=== PATIENT | female | born 1985 | race Caucasian/White ===

== ENCOUNTER 2018-04-12 04:28 | Inpatient (IN) | payer MEDICAID ==
[~2018-04-12] VITALS: Ht 167.6 cm; Wt 111.6 kg
[~2018-04-12 04:28] MED LIST: PNV1TABL50 PO
[2018-04-12] MEDS ORDERED: LIDOCAINE HCL 1% 20ML VIAL (Pyxis) INJ INFIL SCH (05:30)
[2018-04-12] MEDS ORDERED: BUTORPHANOL TARTRATE 2 MG/ML VIAL IV PRN (05:30)
[2018-04-12] MEDS ORDERED: MISOPROSTOL 100MCG TABLET VG SCH (05:30)
[2018-04-12] MEDS ORDERED: METHYLERGONOVINE MALEATE 0.2 MG/ML IM PRN (05:30)
[2018-04-12] MEDS ORDERED: NALOXONE HCL 0.4 MG/ML 1ML VIAL IM PRN (05:30)
[2018-04-12] MEDS ORDERED: CARBOPROST TROMETHAMINE 250 MCG/ML AMPUL IM PRN (05:30)
[2018-04-12] MEDS: LACTATED RINGERS 1,000 ML IV SCH ×2 (05:55→11:02)
[2018-04-12 06:20] LABS: BASOPHILS % 0.6 % (0.0-2.0); EOSINOPHILS % 0.9 % (0.0-5.0); HEMOGLOBIN. 11.7 g/dL (12.0-16.0); LYMPHOCYTES % 29.9 % (20.0-50.0); MEAN CORPUSCULAR HEMOGLOBIN 28.8 pg (28.0-32.0); MEAN CORPUSCULAR VOLUME 86.3 fL (81.0-99.0); MEAN PLATELET VOLUME 7.4 fl (7.4-10.4); MONOCYTES % 7.5 % (2.0-8.0); NEUTROPHILS % 61.1 % (40.0-76.0); PLATELET 314 x1000/uL (130-400); RED BLOOD CELL COUNT 4.05 mill/uL (4.2-5.4); RED CELL DISTRIBUTION WIDTH 15.1 % (11.6-14.6)
[2018-04-12 06:23] LABS: CLARITY URINE TURBID (CLEAR); COLOR URINE YELLOW (YELLOW); KETONES URINE NEGATIVE (NEGATIVE); LEUKOCYTE ESTERASE URINE NEGATIVE (NEGATIVE); NITRITE URINE NEGATIVE (NEGATIVE); OCCULT BLOOD URINE 3+ (NEGATIVE); PROTEIN URINE 2+ (NEGATIVE); SPECIFIC GRAVITY URINE 1.012 (1.005-1.030); UROBILINOGEN URINE 0.2 E.U./dL (0.2-1.0)
[2018-04-12 06:30] LABS: INR 0.9; PARTIAL THROMBOPLASTIN TIME 26.2 sec (23.4-31.0); PROTHROMBIN TIME 9.3 sec (9.1-11.1)
[2018-04-12 06:45] LABS: *AMPHETAMINES SCREEN URINE NEGATIVE (NEGATIVE); *BARBITURATES SCREEN URINE NEGATIVE (NEGATIVE); *BENZODIAZEPINES SCREEN URINE NEGATIVE (NEGATIVE); *COCAINE SCREEN URINE NEGATIVE (NEGATIVE)
[2018-04-12 06:46] LABS: CANNABINOID URINE SCREEN NEGATIVE (NEGATIVE); METHADONE URINE SCREEN NEGATIVE (NEGATIVE); OPIATES URINE SCREEN NEGATIVE (NEGATIVE); PHENCYCLIDINE URINE SCREEN NEGATIVE (NEGATIVE)
[2018-04-12 07:12] LABS: HEPATITIS B SURFACE ANTIGEN NEGATIVE
[2018-04-12] MEDS ORDERED: BUPIVACAINE HCL/NS/PF EPIDURAL 100 ML EP ONE (10:17)
[2018-04-12] MEDS: DEXT 5%/LR + PITOCIN 20UNITS/L 1,000 ML IV SCH ×2 (16:24→20:25)
[2018-04-12] MEDS ORDERED: FENTANYL CITRATE/PF 50MCG/ML 2ML VIAL ONE (17:29)
[2018-04-12] MEDS ORDERED: MORPHINE SULFATE/PF 1MG/ML 10ML AMP ONE (17:39)
[2018-04-12] MEDS ORDERED: CEFAZOLIN SODIUM 1000MG/VIAL ONE (17:54)
[2018-04-12] MEDS ORDERED: OXYTOCIN 10 UNITS/ML 1ML ONE (17:54)
[2018-04-12] MEDS ORDERED: METOCLOPRAMIDE HCL 10MG/2ML VIAL ONE (17:55)
[2018-04-12] MEDS ORDERED: ONDANSETRON HCL 4MG/2ML INJ ONE (17:55)
[2018-04-12] MEDS ORDERED: DEXT 5%/LR + PITOCIN 20UNITS/L 1,000 ML IV SCH (17:59)
[2018-04-12] MEDS ORDERED: RHO(D) IMMUNE GLOBULIN 300 MCG/SYR IM PRN (18:00)
[2018-04-12] MEDS ORDERED: ONDANSETRON HCL 4MG/2ML INJ IV PRN (18:00)
[2018-04-12] MEDS ORDERED: HEMORRHOIDAL SUPP PR PRN (18:00)
[2018-04-12] MEDS ORDERED: LANOLIN OINT 0.25 GM TUBE TOP PRN (18:00)
[2018-04-12] MEDS ORDERED: BISACODYL 10MG SUPP PR PRN (18:00)
[2018-04-12] MEDS ORDERED: HYDROCODONE/ACETAMINOPHEN 5/325MG TABLET PO PRN (18:00)
[2018-04-12 20:40] VITALS: BP 99/48
[2018-04-12 21:10] VITALS: BP 103/46
[2018-04-12 21:40] VITALS: BP 100/51
[2018-04-13 00:10] VITALS: BP 94/50
[2018-04-13 04:40] VITALS: BP 99/52
[2018-04-13] MEDS ORDERED: DIPHENHYDRAMINE 25MG CAPSULE PO PRN (05:15)
[2018-04-13] MEDS: KETOROLAC 30MG/ML VIAL IV PRN ×2 (05:24→13:16)
[2018-04-13 07:50] LABS: BASOPHILS % 0.1 % (0.0-2.0); EOSINOPHILS % 0.1 % (0.0-5.0); HEMATOCRIT. 27.9 % (36.0-48.0); HEMOGLOBIN. 9.2 g/dL (12.0-16.0); LYMPHOCYTES % 11.7 % (20.0-50.0); MEAN CORPUSCULAR HEMOGLOBIN 28.8 pg (28.0-32.0); MEAN CORPUSCULAR VOLUME 87.3 fL (81.0-99.0); MEAN PLATELET VOLUME 7.1 fl (7.4-10.4); MONOCYTES % 5.3 % (2.0-8.0); NEUTROPHILS % 82.8 % (40.0-76.0); PLATELET 256 x1000/uL (130-400); RED CELL DISTRIBUTION WIDTH 14.7 % (11.6-14.6)
[2018-04-13 09:00] VITALS: BP 90/44
[2018-04-13] MEDS: PRENATAL VIT/FE FUMARATE/FA TABLET PO SCH (09:00)
[2018-04-13] MEDS: MAGNESIUM/ALUMINUM HYDROXIDE/SIMETHICONE 30ML UDC PO SCH ×4 (09:15→21:00)
[2018-04-13] MEDS: METOCLOPRAMIDE HCL 10MG/2ML VIAL IV SCH ×2 (09:15→21:00)
[2018-04-13 17:37] VITALS: BP 107/63
[2018-04-13] MEDS: ACETAMINOPHEN WITH CODEINE 300/30MG TABLET PO PRN (18:04)
[2018-04-13 20:00] VITALS: BP 100/67
[2018-04-14] VITALS: BP 102/52
[2018-04-14 04:00] VITALS: BP 103/61
[2018-04-14] MEDS: ACETAMINOPHEN WITH CODEINE 300/30MG TABLET PO PRN ×2 (04:20→20:50)
[2018-04-14 07:43] VITALS: BP 109/61
[2018-04-14] MEDS: MAGNESIUM/ALUMINUM HYDROXIDE/SIMETHICONE 30ML UDC PO SCH ×4 (08:18→21:09)
[2018-04-14] MEDS: IBUPROFEN 400MG TABLET PO PRN ×2 (08:18→14:28)
[2018-04-14] MEDS: PRENATAL VIT/FE FUMARATE/FA TABLET PO SCH (08:18)
[2018-04-14 16:18] VITALS: BP 101/66
[2018-04-14 20:00] VITALS: BP 101/55
[2018-04-15] VITALS: BP 99/52
[2018-04-15 04:00] VITALS: BP 101/64
[2018-04-15] MEDS: IBUPROFEN 400MG TABLET PO PRN ×3 (04:42→17:22)
[2018-04-15 07:45] VITALS: BP 103/56
[2018-04-15] MEDS: PRENATAL VIT/FE FUMARATE/FA TABLET PO SCH (08:57)
[2018-04-15] MEDS: MAGNESIUM/ALUMINUM HYDROXIDE/SIMETHICONE 30ML UDC PO SCH (08:58)
== END 2018-04-15 19:50 | disposition home or self-care (01) | DRG 540 ==
LOC: OBSVTOIN 04:28 → L&D 04:28 → 7EST PP/OB 20:30 → 8EST 04-14 14:17
PROVIDERS: ADMIT Obstetrics & Gynecology; ATTEND Obstetrics & Gynecology
PROC: 10D00Z1 Extraction of Products of Conception, Low, Open Approach (ICD-10-PCS; principal; 2018-04-12 17:42)
DX: O76 Abnormality in fetal heart rate and rhythm complicating labor and delivery (principal); D62 Acute posthemorrhagic anemia; O32.1XX0 Maternal care for breech presentation, not applicable or unspecified; O90.81 Anemia of the puerperium; Z37.0 Single live birth; Z3A.39 39 weeks gestation of pregnancy
CPT/HCPCS: 36415; 80305; 86592; 86703; 86762; 86850; 86900; 87340; 88307; 99281; J0690; J1885; J2274; J2405; J2590; J2765; J3010; J3490; J7120; A4315